=== PATIENT | female | born 1985 | race Caucasian/White ===

== ENCOUNTER → 2017-05-25 | Outpatient (CLI) | payer OTHER ==
[~2017-05-25] MED LIST: NS 100 ML IV 100 ML IV ONE
--- NOTE | 2017-05-25 14:26 | CT ---
CT chest with contrast Indication: Right-sided chest pain, palpable mass superior to the right breast. Recently gave . Technique: CT images of the chest were obtained with IV contrast. Automatic exposure control was util ized. Skin marker placed in the region of interest. Comparison: None Findings: No acute skeletal abnormality. The upper abdomen is unremarkable. The heart size is normal, without significant pericardial thickening or pericardial effusion. The tho racic aorta is normal for technique. No large central pulmonary arterial filling defect identified. N o suspicious intrathoracic lymph nodes. The lungs are clear without focal infiltrates, pleural effusi on, or pneumothorax. The major airways are patent. There is a skin marker along the right superior aspect of the chest. No underlying mass, collection, or other abnormality is seen in this region. The breasts demonstrate diffusely increased density, sug gestive for . No obvious breast mass. No axillary adenopathy. Impression: No abnormality identified in the region of interest. No acute intrathoracic abnormality. It should be noted that in a patient of this age presenting with breast symptoms, ultrasound is the o ptimal initial imaging study. Reported By:
== END ==
LOC: RAD 13:09
PROVIDERS: ATTEND Internal Medicine
DX: R06.02 Shortness of breath (principal); R07.89 Other chest pain; R22.2 Localized swelling, mass and lump, trunk
CPT/HCPCS: 71260; A4222